=== PATIENT | male | born 1995 | race American Indian/Alaskan Native ===

== ENCOUNTER 2019-05-16 00:38 | Emergency (ER) | payer SELFPAY ==
[2019-05-16 01:59] LABS: Basophils # (Auto) 0.1 K/mm3 (0.0-0.1); Basophils % (Auto) 1.1 % (0.0-1.8); Eosinophils # (Auto) 0.1 K/mm3 (0.0-0.4); Eosinophils % (Auto) 1.5 % (0.0-4.3); Hematocrit 46.2 % (35.5-45.6); Hemoglobin 15.5 gm/dl (11.8-15.2); Lymphocytes # (Auto) 1.7 K/mm3 (1.2-5.4); Lymphocytes % (Auto) 31.7 % (13.4-35.0); Mean Corpuscular HGB Conc 34 % (32-34); Mean Corpuscular Volume 98 fl (84-94); Monocytes # (Auto) 0.5 K/mm3 (0.0-0.8); Monocytes % (Auto) 9.8 % (0.0-7.3); Platelet Count 147 K/mm3 (140-440); Red Blood Count 4.71 M/mm3 (3.65-5.03); Red Cell Distribution Width 13.7 % (13.2-15.2)
[2019-05-16 02:19] LABS: Alanine Aminotransferase 15 units/L (7-56); Albumin 4.9 g/dL (3.9-5); BUN/Creatinine Ratio 11; Blood Urea Nitrogen 11 mg/dL (9-20); Calcium 9.8 mg/dL (8.4-10.2); Hemolysis Index 9
[2019-05-16 05:52] LABS: Bilirubin,Urine NEG (Negative); Blood,Urine SM (Negative); Color,Urine Yellow (Yellow); Mucus,Urine 3+ /HPF; Urobilinogen,Urine < 2.0 mg/dL (<2.0)
--- NOTE | 2019-05-16 06:20 | Emergency Department Report ---
ED Abdominal Pain HPI - General Chief Complaint: Abdominal Pain Stated Complaint: ABD PAIN Time Seen by Provider: 05/16/19 06:18 Source: patient Mode of arrival: Ambulatory Limitations: No Limitations - History of Present Illness Initial Comments: 24-year-old male gives a history of vague intermittent abdominal pain for the last 2 days. He states he took Pepto-Bismol because he thought he was constipated. He didn't take anything actually for constipation or an enema. He does not have chronic constipation. He denies fever or chills. The pain was generalized anterior and nonradiating. It was not migratory. Patient states he has not had this before. He said no prior surgery. He's had no abdominal distention. He denied nausea vomiting fever or chills. MD Complaint: abdominal pain -: days(s) Location: diffuse Radiation: none Migration to: no migration Severity: mild Quality: aching Consistency: intermittent Improves With: nothing Worsens With: nothing Associated Symptoms: denies other symptoms Treatments Prior to Arrival: other - Related Data Previous Rx's Medication Instructions Recorded Last Taken Type traMADol [Ultram 50 MG tab] 50 mg PO Q6HR PRN #7 tablet 05/16/19 Unknown Rx Allergies Allergy/AdvReac Type Severity Reaction Status Date / Time No Known Allergies Allergy Unverified 05/16/19 01:25 EST ED Review of Systems ROS: Stated complaint: ABD PAIN Other details as noted in HPI Constitutional: denies: chills, fever Eyes: denies: eye pain, eye discharge, vision change ENT: denies: ear pain, throat pain Respiratory: denies: cough, shortness of breath, wheezing Cardiovascular: denies: chest pain, palpitations Endocrine: no symptoms reported Gastrointestinal: abdominal pain, constipation. denies: nausea, vomiting, diarrhea Genitourinary: denies: urgency, dysuria Musculoskeletal: denies: back pain, joint swelling, arthralgia Skin: denies: rash, lesions Neurological: denies: headache, weakness, paresthesias Psychiatric: denies: anxiety, depression Hematological/Lymphatic: denies: easy bleeding, easy bruising ED Past Medical Hx - Past Medical History Previous Medical History?: Yes Hx Kidney Stones: Yes - Surgical History Past Surgical History?: No - Social History Smoking Status: Current Every Day Smoker Substance Use Type: None - Medications Home Medications: Home Medications Medication Instructions Recorded Confirmed Last Taken Type traMADol [Ultram 50 MG tab] 50 mg PO Q6HR PRN #7 tablet 05/16/19 Unknown Rx ED Physical Exam - General Limitations: No Limitations General appearance: alert, in no apparent distress - Head Head exam: Present: atraumatic, normocephalic - Eye Eye exam: Present: normal appearance. Absent: scleral icterus - ENT ENT exam: Present: mucous membranes moist - Neck Neck exam: Present: normal inspection - Respiratory Respiratory exam: Present: normal lung sounds bilaterally. Absent: respiratory distress - Cardiovascular Cardiovascular Exam: Present: regular rate, normal rhythm. Absent: systolic murmur, diastolic murmur, rubs, gallop - GI/Abdominal GI/Abdominal exam: Present: soft, normal bowel sounds. Absent: distended, tenderness, guarding, rebound, rigid, organomegaly, mass, pulsatile mass, hernia - Rectal Rectal exam: Present: deferred - Extremities Exam Extremities exam: Present: normal inspection - Back Exam Back exam: Present: normal inspection - Neurological Exam Neurological exam: Present: alert, oriented X3, CN II-XII intact. Absent: motor sensory deficit - Psychiatric Psychiatric exam: Present: normal affect, normal mood - Skin Skin exam: Present: warm, dry, intact, normal color. Absent: rash ED Course Vital Signs 05/16/19 05/16/19 00:46 05:30 Temperature 99.2 F 98.5 F Pulse Rate 64 62 Respiratory 18 18 Rate Blood Pressure 117/75 Blood Pressure 112/58 [Left] O2 Sat by Pulse 99 100 Oximetry - Reevaluation(s) Reevaluation #1: On reexam patient is resting comfortably. He tells me his abdominal pain is totally resolved. His only complaint is now "I'm hungry". I discussed the possibility of getting a CT scan for further evaluation of his abdominal pain. He declined this. Indeed, his x-ray shows no signs of obstipation or even constipation. His lab work is fine. This does appear to be a benign process. He is instructed to follow-up with primary care physician. 05/16/19 07:59 ED Medical Decision Making - Lab Data Result diagrams: 05/16/19 01:38 EST 05/16/19 01:38 EST Laboratory Results - last 24 hr 11/03/19 11/03/19 11/03/19 01:38 EST 01:38 EST 05:31 WBC 5.3 RBC 4.71 Hgb 15.5 H Hct 46.2 H MCV 98 H MCH 33 H MCHC 34 RDW 13.7 Plt Count 147 Lymph % (Auto) 31.7 [place] % (Auto) 9.8 H Eos % (Auto) 1.5 Baso % (Auto) 1.1 Lymph # 1.7 [place] # 0.5 Eos # 0.1 Baso # 0.1 Seg Neutrophils % 55.9 Seg Neutrophils # 2.9 Sodium 142 Potassium 4.3 Chloride 102.5 Carbon Dioxide 28 Anion Gap 16 BUN 11 Creatinine 1.0 Estimated GFR > 60 BUN/Creatinine Ratio 11 Glucose 96 Calcium 9.8 Total Bilirubin 0.20 AST 17 ALT 15 Alkaline Phosphatase 82 Total Protein 7.8 Albumin 4.9 Albumin/Globulin Ratio 1.7 Lipase 31 Urine Color Yellow Urine Turbidity Clear Urine pH 5.0 Ur Specific [place] 1.028 Urine Protein 30 mg/dl Urine Glucose (UA) Neg Urine Ketones Neg Urine Blood Sm Urine Nitrite Neg Urine Bilirubin Neg Urine Urobilinogen < 2.0 Ur Leukocyte Esterase Tr Urine WBC (Auto) 6.0 Urine RBC (Auto) 19.0 Urine Mucus 3+ - Radiology Data Radiology results: report reviewed (abdominal films show a paucity of stool. They're normal. They're not consistent with constipation.), image reviewed Critical care attestation.: If time is entered above; I have spent that time in minutes in the direct care of this critically ill patient, excluding procedure time. ED Disposition Clinical Impression: Abdominal pain Qualifiers: Abdominal location: generalized Qualified Code(s): R10.84 - Generalized abdominal pain Disposition: TO HOME OR SELFCARE Is pt being admited?: No Does the pt Need Aspirin: No Condition: Stable Instructions: Abdominal Pain (ED) Additional Instructions: Follow-up with primary care physician is recommended. Rx as needed for pain. R eturn to the emergency department should he desire further workup and especially if pain is recurrent or associated with any other symptoms or fever. Prescriptions: traMADol [Ultram 50 MG tab] 50 mg PO Q6HR PRN #7 tablet PRN Reason: Pain Referrals: ANNE-MARIE DEVINE MD [Primary Care Provider] - 2-3 Days Time of Disposition: 08:01
--- NOTE | 2019-05-16 07:11 | XRay Report ---
ABDOMEN 2 VIEWS INDICATION / CLINICAL INFORMATION: constipated, abd pain. COMPARISON: None available. FINDINGS: TUBES / LINES: None. BOWEL GAS PATTERN: No significant abnormality. No significant constipation. FREE AIR / EXTRALUMINAL GAS: None seen. ADDITIONAL FINDINGS: Calcification projecting over the right mid abdomen may be within the right kidn ey. LUNGS: Visualized lungs show no significant abnormality. IMPRESSION: 1. No bowel obstruction or free air. 2. Possible right nephrolithiasis. Signer Name: Gregorai Cohn MD Signed: 05/16/2019 7:06 AM Workstation Name: [id number]
[2019-05-16 07:15] VITALS: BP 112/58
== END 2019-05-16 08:56 | disposition home or self-care (01) ==
LOC: ED 00:38
DX: R10.84 Generalized abdominal pain (principal); F17.200 Nicotine dependence, unspecified, uncomplicated; Z87.442 Personal history of urinary calculi; Z79.899 Other long term (current) drug therapy; Z88.5 Allergy status to narcotic agent
CPT/HCPCS: 36415; 74019; 80053; 81001; 83690; 85025; 99284

== ENCOUNTER 2019-06-27 01:33 | Emergency (ER) | payer MEDICAID, OTHER ==
[2019-06-27] MEDS ORDERED: ONDANSETRON 4 MG/2 ML INJ IV ONE (01:49)
[2019-06-27] MEDS ORDERED: MORPHINE 4 MG/1 ML INJ IV ONE (01:49)
--- NOTE | 2019-06-27 01:55 | Emergency Department Report ---
ED Fall HPI - General Chief Complaint: Multiple Trauma Stated Complaint: RIGHT LEG INJURY,JUMPED FROM 3RD FLOOR Time Seen by Provider: 06/27/19 01:43 Source: patient Mode of arrival: Ambulatory - History of Present Illness Initial Comments: Patient is 24-year-old male with no significant past medical history. Patient brought to the emergency room accompanied by his after patient jumped from a second story building. Patient is complaining of right leg pain just below the right knee. Patient stated that he landed on his right leg. Patient denied any head injury, neck injury or back injury. Patient is alert and oriented 3 with a GCS of 15. Vital signs stable. MD Complaint: fall -: minutes(s) Fall Witnessed: yes, by family Place Fall Occurred: home Loss of Consciousness: none Prolonged Down Time?: no Symptoms Prior to Fall: none Location - Extremities: Right: Leg Associated Symptoms: denies - Related Data Previous Rx's Medication Instructions Recorded Last Taken Type traMADoL [Ultram 50 MG tab] 50 mg PO Q6HR PRN #7 tablet 05/16/19 Unknown Rx Allergies Allergy/AdvReac Type Severity Reaction Status Date / Time No Known Allergies Allergy Unverified 05/16/19 01:25 EST ED Review of Systems ROS: Stated complaint: RIGHT LEG INJURY,JUMPED FROM 3RD FLOOR Other details as noted in HPI Comment: All other systems reviewed and negative Constitutional: denies: chills, fever Respiratory: denies: cough, shortness of breath, SOB with exertion, wheezing Cardiovascular: denies: chest pain, palpitations Gastrointestinal: denies: abdominal pain, nausea, vomiting, diarrhea, constipation, hematemesis, hematochezia Musculoskeletal: denies: back pain Neurological: denies: headache, weakness, numbness, paresthesias, confusion, abnormal gait ED Past Medical Hx - Past Medical History Previous Medical History?: Yes Hx Kidney Stones: Yes - Surgical History Past Surgical History?: No - Social History Smoking Status: Current Every Day Smoker Substance Use Type: Alcohol, Marijuana - Medications Home Medications: Home Medications Medication Instructions Recorded Confirmed Last Taken Type traMADoL [Ultram 50 MG tab] 50 mg PO Q6HR PRN #7 tablet 05/16/19 Unknown Rx ED Physical Exam - General Limitations: No Limitations General appearance: alert, in distress (due to pain) - Head Head exam: Present: atraumatic, normocephalic, normal inspection - Eye Eye exam: Present: normal appearance - ENT ENT exam: Present: normal exam, normal orophraynx, mucous membranes moist, TM's normal bilaterally, normal external ear exam - Neck Neck exam: Present: normal inspection, full ROM. Absent: tenderness, meningismus, lymphadenopathy, thyromegaly - Respiratory Respiratory exam: Present: normal lung sounds bilaterally. Absent: respiratory distress, wheezes, chest wall tenderness - Cardiovascular Cardiovascular Exam: Present: regular rate, normal rhythm, normal heart sounds - GI/Abdominal GI/Abdominal exam: Present: soft, normal bowel sounds. Absent: distended, tenderness, guarding, rebound, rigid, organomegaly, mass, bruit, pulsatile mass, hernia - Extremities Exam Extremities exam: Present: normal capillary refill. Absent: pedal edema, joint swelling, calf tenderness - Expanded Lower Extremity Exam Right Hip exam: Present: normal inspection, full ROM. Absent: tenderness Upper Leg exam: Present: normal inspection, full ROM. Absent: tenderness, swelling Knee exam: Present: normal inspection, full ROM. Absent: tenderness, swelling, abrasion, laceration, ecchymosis, deformity Lower Leg exam: Present: tenderness, deformity. Absent: swelling, abrasion, laceration, ecchymosis, crepidus, dislocation, erythema Ankle exam: Present: normal inspection, full ROM Foot/Toe exam: Present: normal inspection, full ROM Neuro vascular tendon exam: Present: no vascular compromise Gait: Positive: unable to bear weight - Back Exam Back exam: Present: normal inspection, full ROM. Absent: CVA tenderness (R), CVA tenderness (L), muscle spasm, paraspinal tenderness, vertebral tenderness - Neurological Exam Neurological exam: Present: alert, oriented X3, CN II-XII intact, reflexes normal. Absent: motor sensory deficit - Psychiatric Psychiatric exam: Present: normal mood. Absent: depressed, agitated, anxious, flat affect, manic, homicidal ideation, suicidal ideation - Skin Skin exam: Present: warm, intact, normal color ED Course Vital Signs 06/27/19 06/27/19 02:00 02:55 Temperature 98.8 F Pulse Rate 80 74 Respiratory 10 L 14 Rate Blood Pressure 105/60 112/75 [Left] O2 Sat by Pulse 97 99 Oximetry - Orthopedic Splinting/Casting Injury #1 Side: right Lower Extremity Injury Location: lower leg Lower Extremity Immobilizer: posterior splint ED Medical Decision Making - Radiology Data Radiology results: report reviewed - Medical Decision Making Patient is 24-year-old male with no significant past medical history. Patient brought to the emergency room accompanied by his after patient jumped from a second story building. Patient is complaining of right leg pain just below the right knee. Patient stated that he landed on his right leg. Patient denied any head injury, neck injury or back injury. Patient is alert and oriented 3 with a GCS of 15. Vital signs stable. Patient x-ray showed a distal tibial fracture. Patient received morphine, fentanyl for pain. Right leg splinted. No evidence of spinal injury or foot injury. No evidence of compartment syndrome. I discussed the patient with Dr. Dunn. Dr. Dunn reviewed the patient x-rays and advised that patient can be discharged to follow-up with him in his office in the next 2-3 days. Patient given prescription for [place] and advised to return to the ER if symptoms are not improve or patient develops any symptoms concerning for compartment syndrome. Critical care attestation.: If time is entered above; I have spent that time in minutes in the direct care of this critically ill patient, excluding procedure time. ED Disposition Clinical Impression: Right tibial fracture Disposition: DC-01 TO HOME OR SELFCARE Is pt being admited?: No Condition: Stable Instructions: Leg Fracture (ED) Referrals: ZEESHAN DUNN MD [Staff Physician] - 3-5 Days
--- NOTE | 2019-06-27 02:39 | XRay Report ---
Right tibia and fibula, 2 views INDICATION: Pain following injury tonight FINDINGS: There is a spiral type fracture mid to distal third of the tibia with several longitudinal fracture lines as well as displaced fragment projected medially. The ankle mortise is intact and the fibula is intact as well as the proximal tibia. IMPRESSION: Distal tibial fracture Signer Name: Santino Wright MD Signed: 06/27/2019 2:35 AM Workstation Name: [id number]
[2019-06-27 02:57] VITALS: BP 112/75
[2019-06-27] MEDS ORDERED: fentaNYL 100 MCG/2 ML INJ IV ONE (02:58)
[2019-06-27] MEDS ORDERED: fentaNYL 100 MCG/2 ML INJ ONE (02:59)
== END 2019-06-27 04:15 | disposition home or self-care (01) ==
LOC: ED 01:33
DX: S82.301A Unspecified fracture of lower end of right tibia, initial encounter for closed fracture (principal); F17.200 Nicotine dependence, unspecified, uncomplicated; F10.10 Alcohol abuse, uncomplicated; F12.10 Cannabis abuse, uncomplicated; Z79.899 Other long term (current) drug therapy; Z87.442 Personal history of urinary calculi; W17.89XA Other fall from one level to another, initial encounter; Y93.89 Activity, other specified; Y92.009 Unspecified place in unspecified non-institutional (private) residence as the place of occurrence of the external cause; Y99.8 Other external cause status
CPT/HCPCS: 29515; 73590; 96374; 96375; 99283; J2270; J2405; J3010